=== PATIENT | female | born 1985 | race Caucasian/White ===

== ENCOUNTER 2025-02-06 10:13 | Emergency (ER) | payer MEDICAID, SELFPAY ==
[2025-02-06 10:20] VITALS: BP 138/83; PULSE 85; RESP 18; TEMP 36.6; O2SAT 99
[2025-02-06 10:37] VITALS: PULSE 91; RESP 16; BMI 34.4
--- NOTE | 2025-02-06 10:50 | PC.NURSE ---
Patient BIBA for c/o abd pain, location is anterior starts from umbilicus up to epigastric region then radiates to back. She has been nauseated x 1week without any fevers. New medication zofran given for nausea. Pt is alert and oriented, speaks normally, is currently on phone, call light within reach and bed lowest position.
--- NOTE | 2025-02-06 11:15 | XR_ITS ---
Examination: CT abdomen and pelvis without contrast. Coronal 3-D reconstructions. Sagittal 2-D reconstructions. Date and time of exam: February 06, 2025, 1220 hours, comparison May 02, 2022 INDICATIONS: Mid to lower abdominal pain today CTDI: vol (mGy): 13.1 DLP: (mGycm): 818 Technique: Axial images of the abdomen have been obtained, 3 mm slice thickness Intravenous contrast material has not been administered. Low dose protocols were performed. One or more of the following dose reduction techniques were used; automated exposure control, adjustment of the mA and/or KV according to patient size, use of iterative reconstruction technique. Findings: No visualized liver or splenic lesion Cholelithiasis No pancreatic or adrenal mass. 2 mm nonobstructing right renal calculus, no hydronephrosis or ureteral calculi Normal appendix No bowel obstruction No diverticulitis No pelvic mass No bladder mass or bladder calculi Mild osteopenia IMPRESSION: Cholelithiasis, recommend hepatobiliary sonography follow-up to better assess the gallbladder wall 2 mm lower pole nonobstructing right renal calculus, no hydronephrosis or ureteral calculi Normal appendix No bowel obstruction or diverticulitis No bladder mass or bladder calculi
--- NOTE | 2025-02-06 11:17 | EDNOTE_ITS ---
<Statement entered by Julia Villeda MD - 02/06/25 16:24> As co-signing physician, I was present and available for consult prn. I concur with the plan and care as documented by the midlevel provider. ED General RME/HPI General Chief complaint: Abdominal Pain Stated complaint: ABD PAIN Time Seen by Provider: 02/06/25 11:12 Arrival date/time: 02/06/25 10:13 CC: Abdominal pain HPI patient woke up approximately 830 with a abdominal pain a 10 out of 10 scale, low mid periumbilical, with radiation to the back and up into the center chest. Abrupt cessation approximately 15 minutes ago it is currently 1117. Patient states nausea that was associated with that is also resolved patient denies diarrhea or vomiting. No OTC medicines taken for the pain no prior history of similar events last menstrual cycle was December 2015 denies . Patient is resting comfortably not in any acute distress. No other complaints Related Data Home Medications ?Medication ?Instructions ?Recorded ?Confirmed erythromycin 250 mg tablet 250 mg PO DAILY 05/01/22 ibuprofen 600 mg tablet 600 mg PO Q8H PRN Pain 05/0105/01/22 Allergies Allergy/AdvReac Type Severity Reaction Status Date / Time melon Allergy Severe Difficulty Verified 05/06/22 09:40 Breathing salmon oil Allergy Severe Hives Verified 05/06/22 09:40 shrimp Allergy Severe Hives Verified 05/06/22 09:40 latex Allergy rash Verified 05/06/22 09:40 lactose AdvReac Severe DIARRHEA Verified 05/06/22 09:40 Review of Systems Review of Systems Narrative Review of Systems: GEN: No fever, no chills, no weight loss EYES: No discharge, no visual changes, no pain HEENT: No ear pain, no congestion, no sore throat PULM: No shortness of breath, no cough, no congestion CV: No chest pain, no dyspnea on exertion, no palpitations GI: No nausea, no vomiting, no diarrhea, + pain, no constipation : No frequency, no urgency, no dysuria MUSC/SKEL: No joint pain, no back pain SKIN: No rash PSYCH: No hallucinations, no depression HEME/LYMPH: No easy bleeding or bruising tendencies NEURO: No weakness, no headache ED Exam Narrative Physical exam: [General: Obese not in any acute distress Head normocephalic HEENT: Within acceptable limits Neck is supple nontender Chest equal chest rise nontender to palpation Respiratory: Clear to auscultation no wheezes crackles or rubs CV: Rate rhythm is regular no murmurs rubs or clicks Abdomen is distended secondary to body habitus mild tenderness to the right upper quadrant and right lower quadrant. No pain in the left quadrant or upper quadrants nor in the epigastrium. Back: No CVA tenderness no spinous process tenderness from cervical spine thoracic and lumbar spine Skin: Intact no petechiae rash induration ulceration or crepitus Extremities: Moving all extremity against resistance cap refill less than 2 seconds neurosensory intact Neuro: Awake alert oriented x3 Glascow coma 15 no focal deficits] Course Quality Measures none Orders Category Date Time Status CT abdomen pelvis wo con Stat Exams 02/06/25 11:15 Completed CBC Stat Lab 02/06/25 11:37 Completed CMP [Comprehensive Metabolic Panel] Stat Lab 02/06/25 11:37 Completed HCG Qualitative,Urine Stat Lab 02/06/25 11:20 Completed Lipase Stat Lab 02/06/25 11:37 Completed Urinalysis Stat Lab 02/06/25 11:20 Completed Vital Signs Vital signs: Vital Signs Temperature 98 F 02/06/25 10:20 Pulse Rate 85 02/06/25 10:20 Respiratory Rate 18 02/06/25 10:20 Blood Pressure 138/83 H 02/06/25 10:20 Pulse Oximetry (%) 99 02/06/25 10:20 Oxygen Delivery Method Room Air 02/06/25 10:20 Discharge Plan Plan Patient Disposition: HOME (Self Care) Patient condition on transfer: Stable Prescriptions/Referrals Prescriptions/Med Rec: No Action erythromycin 250 mg Tablet 250 mg PO DAILY ibuprofen 600 mg Tablet 600 mg PO Q8H PRN (Reason: Pain) Referrals: Dionte Borrego MD [Physician, General Surgery] - In 1 week Problem List Clinical Impression: Abdominal pain, Cholelithiasis Patient/Caregiver Discharge Instructions Education Materials: Abdominal Pain, What Are Gallstones, Treating Gallstones Additional Instructions: Follow-up with the surgeon listed above, if there is a worsening of symptoms return the emergency room immediately for further evaluation. Print Language: Kazakh Stand Alone Forms: Ophelia Award Info., Work/School Release, Patient Portal Info Letter PA/MANAGER PACU Supervising Physician ESTUARDO/[place] Supervising Physician: Simon Nesbitt ENP MDM Clinical Information Provided by: patient and EMS Medical Records reviewed [facility] and EMS Meds/Rx considered, not ordered None Labs/Rad/Tests considered, not ordered None Chronic Illness/Social Conditions which may negatively complicate care or outcome(s)-explain: None or not applicable EKG EKG not done Labs Labs: interpreted by me Lab(s) Interpretation(s): CBC shows no acute leukocytosis anemia thrombocytopenia CMP shows no significant electrolyte imbalances renal impairment T. bili at 2.1 no transaminitis. Urine is turbid 1+ ketones 14 epithelial cells leukocyte esterase positive, suspect a contaminated specimen. Imaging Imaging interpretation: interpreted by me Imaging Interpretation(s): Cholelithiasis
[2025-02-06 11:51] LABS: Collection Type, Urine Clean Catch; RBC,Urine 0 /hpf (0-3)
[2025-02-06 11:55] LABS: Basophils # (Auto) 0.0 Thou/mm3 (0.0-0.2); Basophils % (Auto) 0 % (0-2.5); Eosinophils # (Auto) 0.1 Thou/mm3 (0.0-0.5); Eosinophils % (Auto) 1 % (0-10); Hematocrit 36.8 % (36.0-46.0); Hemoglobin 12.9 g/dL (12.0-16.0); Immature Granulocytes Auto 0.04 Thou/mm3 (0.00-0.00); Lymphocytes # (Auto) 1.4 Thou/mm3 (1.0-4.8); Lymphocytes % (Auto) 16 % (10-50); Mean Corpuscular HGB Conc 35.1 g/dl (31.0-37.0); Mean Corpuscular Hemoglobin 29.9 pg (25.0-35.0); Mean Corpuscular Volume 85 fL (80-100); Monocytes # (Auto) 0.6 Thou/mm3 (0.0-0.8); Monocytes % (Auto) 7 % (0-12); Neutrophils # (Auto) 7.0 Thou/mm3 (1.8-7.7); Neutrophils % (Auto) 76 % (37-80); Nucleated Red Blood Cell # 0.00 Thou/mm3 (0.00-0.00); Nucleated Red Blood Cell % 0 /100 WBC (0); Platelet Count 228 Thou/mm3 (140-440); RDW Standard Deviation 36.3 fL (36.4-46.3); Red Blood Count 4.31 Miln/mm3 (4.00-5.20); White Blood Count 9.2 Thou/mm3 (3.6-11.0)
[2025-02-06 12:04] LABS: Bacteria,Urine Rare; Bilirubin,Urine Negative (Negative); Blood,Urine Negative (Negative); Clarity,Urine Turbid (Clear/Hazy); Color,Urine Yellow (Lt Yel-Yel); Glucose, Urine Negative (Negative); HCG Qualitative,Urine Negative; Hyaline Casts,Urine < 1 /hpf (0-1); Ketones,Urine 1+ (Negative); Leukocyte Esterase,Urine Positive (Negative); Nitrite,Urine Negative (Negative); PH,Urine 7.5 (5.0-7.0); Protein,Urine Trace (Neg - Trace); Specific Gravity,Urine 1.023 (1.001-1.035); Squamous Epithelial Cell,Urine 14 /hpf (0-5); Urobilinogen,Urine 2.0 mg/dL (0.0-1.0); WBC,Urine 6 /hpf (0-5)
[2025-02-06 12:13] LABS: Alanine Aminotransferase 23 U/L (10-49); Albumin, Serum 4.5 gm/dL (3.5-5.0); Albumin/Globulin Ratio 2.1 (1.2-2.2); Alkaline Phosphatase 71 U/L (46-116); Anion Gap 8 (7-16); Aspartate Amino Transferase 18 U/L (0-34); BUN/Creatinine Ratio 8 Ratio (12-20); Bilirubin,Total 2.1 mg/dL (0.3-1.2); Blood Urea Nitrogen < 5 mg/dL (9-23); Calcium 9.1 mg/dL (8.3-10.6); Calcium (Corrected) 9.1 mg/dL (8.5-10.1); Carbon Dioxide 29.8 mMol/L (20.0-31.0); Chloride 105 mMol/L (98-107); Creatinine (Component) 0.6 mg/dL (0.6-1.3); Estimated Creatinine Clearance 158.0 mL/min (>60); Globulin 2.1 gm/dL (2.3-3.5); Glucose 89 mg/dL (74-106); Lipase 53 U/L (12-53); Osmolality,Calculated 281 (275-295); Potassium 3.6 mMol/L (3.4-5.1); Sodium 143 mMol/L (136-145); Total Protein 6.6 gm/dL (5.7-8.2); eGFR > 60 See Note
== END 2025-02-06 13:37 | disposition left against medical advice (07) ==
LOC: SERX 13:53
PROVIDERS: Registered Nurse General Practice; Emergency Provider Emergency Medicine
DX: K80.20 Calculus of gallbladder without cholecystitis without obstruction (principal)
CPT/HCPCS: 36415; 74176; 80053; 81001; 81025; 83690; 85025; 99283